=== PATIENT | male | born 1945 | race Caucasian/White ===

== ENCOUNTER 2017-09-12 09:00 | Day surgery (SDC) | payer OTHER ==
--- NOTE | 2017-09-12 10:06 | HP ---
Admitting History and Physical - Admission Chief Complaint: Right lower extremity claudication less than one block. Pt has been smoking 2ppd for over 50 years. Limitations to Obtaining History: No Limitations - Past Medical History Cardiovascular: Yes: HTN, Hyperlipdemia Endocrine: Yes: Diabetes Mellitus - Smoking History Smoking history: Current every day smoker Have you smoked in the past 12 months: Yes Aproximately how many cigarettes per day: 10 Home Medications - Allergies Allergies/Adverse Reactions: Allergies Allergy/AdvReac Type Severity Reaction Status Date / Time No Known Allergies Allergy Verified 08/05/17 10:32 - Home Medications Home Medications: Ambulatory Orders Aspirin [ASA -] 1 tab PO DAILY 08/05/17 Hydrochlorothiazide 1 tab PO DAILY 08/05/17 Insulin NPH Human Isophane [Humulin N] 30 unit SQ BID 08/05/17 Nifedipine [Nifedipine ER] 1 tab PO DAILY 08/05/17 Olmesartan/Hydrochlorothiazide [Olmesartan-Hctz 40-25 mg Tab] 1 tab PO DAILY 10/16 Rosuvastatin [Crestor -] 1 tab PO DAILY 08/05/17 Metoprolol Succinate 1 tab PO DAILY 08/19/17 Review of Systems - Review of Systems Constitutional: reports: No Symptoms Eyes: reports: No Symptoms HENT: reports: No Symptoms Neck: reports: No Symptoms Cardiovascular: reports: No Symptoms Respiratory: reports: No Symptoms Gastrointestinal: reports: No Symptoms Musculoskeletal: reports: No Symptoms Integumentary: reports: No Symptoms Neurological: reports: No Symptoms Physical Examination Constitutional: Yes: Well Nourished, No Distress, Calm Eyes: Yes: WNL, Conjunctiva Clear, EOM Intact HENT: Yes: WNL, Atraumatic, Normocephalic Neck: Yes: WNL, Supple, Trachea Midline Cardiovascular: Yes: WNL, Regular Rate and Rhythm Respiratory: Yes: WNL, Regular, CTA Bilaterally Gastrointestinal: Yes: WNL, Normal Bowel Sounds Musculoskeletal: Yes: WNL Extremities: Yes: WNL Edema: No Integumentary: Yes: WNL Neurological: Yes: WNL, Alert, Oriented ...Motor Strength: WNL Psychiatric: Yes: WNL Problem List - Problems (1) Arterial insufficiency of lower extremity Code(s): I73.9 - PERIPHERAL VASCULAR DISEASE, UNSPECIFIED Assessment/Plan RLE claudication 1. For angiogram today.
[2017-09-12] MEDS ORDERED: MIDAZOLAM HCL 2 MG/2 ML SINGLE DOSE VIAL ONE ×2 (11:02→11:05)
[2017-09-12] MEDS ORDERED: ceFAZolin SODIUM 1 GM VIAL IVPB ONE ×2 (11:05→11:06)
[2017-09-12] MEDS ORDERED: LIDOCAINE HCL 1%, 10 MG/ML (50 mL VIAL) IJ ONE (11:11)
[2017-09-12] MEDS ORDERED: PROPOFOL 20 ML ONE (11:18)
[2017-09-12] MEDS ORDERED: CLOPIDOGREL BISULFATE 75 MG TABLET (FP) PO ONE ×2 (11:49→12:27)
--- NOTE | 2017-09-12 11:52 | OP ---
Operative Note - Note: Operative Date: 09/12/17 Pre-Operative Diagnosis: RLE claudication Operation: aortogram, RLE angiogram, Popliteal artery atherectomy with DCB angioplasty Post-Operative Diagnosis: Same as Pre-op Surgeon: Herson Burks Anesthesia: Fractional Estimated Blood Loss (mls): 50 Operative Report Dictated: Yes
[2017-09-12] MEDS ORDERED: HEPARIN NA (PORCINE) 5,000 UNITS/ML 1ML VIAL ONE (11:53)
[2017-09-12] MEDS ORDERED: LIDOCAINE HCL 1%, 10 MG/ML (20ML VIAL) ONE (11:53)
[2017-09-12] MEDS ORDERED: hydrALAZINE HCL 20 MG/ML VIAL ONE (12:21)
[2017-09-12] MEDS ORDERED: hydrALAZINE HCL 20 MG/ML VIAL IVPUSH ONE (12:27)
--- NOTE | 2017-09-12 13:02 | OP ---
DATE OF OPERATION: 09/12/2017 PREOPERATIVE DIAGNOSIS: Right lower extremity claudication. POSTOPERATIVE DIAGNOSIS: Right lower extremity claudication. PROCEDURE: Aortogram, right lower extremity angiogram, right popliteal artery atherectomy with drug-coated balloon (DCB) angioplasty. SURGEON: Herson Grider DO ANESTHESIA: Fractional. BLOOD LOSS: 50 mL. The patient is a 72-year-old male who is a 50-year smoker, 2 packs a day, comes in with [id number]-blocks claudication in his right lower extremity. Preoperative ultrasound showed that he has about an 80% to 90% focal stenosis in his popliteal artery. It was decided the patient would need an angiogram. Patient came in through Ambulatory Surgery. Patient was consented for the procedure, understanding all risks, benefits, and alternatives, then taken to the operating room. Once in the operating room, he was laid on the operating table in supine manner, and the area of the right and left groin were prepped and draped in a sterile surgical manner. We then went ahead and punctured the left common femoral artery using 10 mL of lidocaine 1%. We then took our micropuncture needle, punctured the left common femoral artery. Micropuncture wire was inserted. Micropuncture sheath was inserted. A 0.035 floppy guidewire was inserted into the aorta, and a traditional 5-[place] sheath was inserted. We then placed an Omni Flush catheter into the aorta, and we then shot an aortogram by hand injection. The aortogram showed that the aorta and the iliac arteries were without any disease. We then placed a 0.035 floppy guidewire up and over to the right common femoral artery and our Omni Flush catheter followed. We then shot an angiogram of the right lower extremity, showing that the common femoral artery, the profunda, and the SFA were patent. Above-knee popliteal artery had a 95% stenosis that was focal. The rest of the popliteal artery was patent, and the patient has 2-vessel runoff into the foot. At this point, we placed a 0.035 stiff guidewire into the SFA and removed our Omni Flush catheter, placed a 6 x 45 crossover sheath. Next, 5000 units of IV heparin were administered to the patient. We brought our 0.035 stiff guidewire down to the popliteal artery, and using a Quick-Cross catheter, we were able to selectively cross our lesion. We then exchanged for a ViperWire. We then went ahead and used CSI orbital atherectomy and performed orbital atherectomy on low and medium of the popliteal artery lesion. Completion angiogram now showed that the artery was more patent, and you could see that the calcium had been shaven away. We then went ahead and used a 5 x 4 drug-coated Lutonix balloon and performed angioplasty of the right popliteal artery. Completion angiogram now showed that the artery was patent. There was no recoil. There was good brisk flow down into the foot. At this point, we brought our sheath up and over. StarClose device was successfully deployed in the left common femoral artery. Pressure was held for 5 minutes. After that, there was no more bleeding. Area was wet and dried, and Dermabond was placed. The patient tolerated the procedure with no complication. Patient transferred to PACU in stable condition. HEROSN GRIDER DO NP/[id number]
[2017-09-12 14:00] VITALS: BMI 23.0
[2017-09-12 15:50] VITALS: TEMP 98
[2017-09-12 17:30] VITALS: BP 142/56; PULSE 55
== END 2017-09-12 17:30 | disposition home or self-care (01) ==
LOC: JASU-SURG 09:00
PROVIDERS: ATTEND Surgery Vascular Surgery
PROC: 047M3Z1 Dilation of Right Popliteal Artery using Drug-Coated Balloon, Percutaneous Approach (ICD-10-PCS; principal; 2017-09-12 09:00)
DX: I70.211 Atherosclerosis of native arteries of extremities with intermittent claudication, right leg (principal); Z72.0 Tobacco use
CPT/HCPCS: 37225; C2623; 76000-TC-FY; 82962; 94760; J1644

== ENCOUNTER 2025-01-28 06:08 | Inpatient (IN) | payer OTHER ==
[2025-01-26 17:10] VITALS: BMI 24.7
[2025-01-28] MEDS ORDERED: HEPARIN NA (PORCINE) 5,000 UNITS/ML 1ML VIAL ONE (07:05)
[2025-01-28] MEDS ORDERED: MIDAZOLAM HCL 2 MG/2 ML SINGLE DOSE VIAL ONE (07:25)
[2025-01-28] MEDS ORDERED: LIDOCAINE HCL 1%, 10 MG/ML (20ML VIAL) ONE (07:31)
[2025-01-28] MEDS ORDERED: PROPOFOL 20 ML ONE (07:33)
[2025-01-28] MEDS ORDERED: ROCURONIUM BROMIDE 50 MG/5 ML SYRINGE ONE ×2 (08:10→09:12)
[2025-01-28] MEDS ORDERED: ONDANSETRON 4 MG/2 ML VIAL ONE ×2 (08:29→10:25)
[2025-01-28] MEDS ORDERED: DEXAMETHASONE SOD PHOSPHATE 4 MG/1 ML VIAL ONE (08:29)
[2025-01-28] MEDS ORDERED: ACETAMINOPHEN INJECTION 100 ML ONE (09:41)
[2025-01-28] MEDS ORDERED: PROTAMINE SULFATE 50 MG/5 ML VIAL ONE (10:04)
[2025-01-28] MEDS ORDERED: GLYCOPYRROLATE 0.2 MG/1 ML VIAL ONE (10:23)
[2025-01-28] MEDS ORDERED: NEOSTIGMINE METHYLSULFATE 0.5 MG/1 ML - 10 ML MDV ONE ×2 (10:23→10:43)
[2025-01-28] MEDS ORDERED: NALOXONE HCL 0.4 MG/ML VIAL ONE (11:00)
[2025-01-28] MEDS ORDERED: ONDANSETRON 4 MG/2 ML VIAL IVPUSH PRN (11:09)
[2025-01-28] MEDS ORDERED: INSULIN GLARGINE (LANTUS) 100 UNITS/ML UNITS SQ PRN (11:15)
[2025-01-28] MEDS ORDERED: INSULIN (NOVOLOG) ASPART 100 UNITS/ML 10ML VIAL SQ SCH (11:15)
[2025-01-28] MEDS ORDERED: ALBUTEROL SO4 0.083% IH SOL 2.5 MG/3 ML VIAL.NEB. NEB ONE (11:28)
[2025-01-28] MEDS: LACTATED RINGERS SOLUTION 1,000 ML IV SCH (11:36)
[2025-01-28] MEDS: ALBUTEROL SO4 0.083% IH SOL 2.5 MG/3 ML VIAL.NEB. NEB ONE (11:40)
[2025-01-28] MEDS: CEFAZOLIN 2 GM in DEXTROSE 5%-WATER - 100 ML IVPB ONE (12:05)
[2025-01-28] MEDS ORDERED: niCARdipine HCL 25 MG/10 ML AMPUL IVPB ONE (12:15)
[2025-01-28] MEDS: niCARdipine HCL 25 MG/10 ML - 10 ML VIAL IV SCH (13:28)
[2025-01-28] MEDS: NITROGLYCERIN SUBLINGUAL 1/150 0.4 MG TAB SL SCH (13:29)
[2025-01-28] MEDS ORDERED: INSULIN ASPART SLIDING SCALE (NOVOLOG) 1 VIAL SQ SCH (16:30)
[2025-01-28] MEDS: INSULIN (NOVOLOG) ASPART 100 UNITS/ML 10ML VIAL SQ SCH (17:02)
[2025-01-28] MEDS: INSULIN ASPART SLIDING SCALE (NOVOLOG) 1 VIAL SQ SCH (17:03)
[2025-01-28] MEDS: ONDANSETRON 4 MG/2 ML VIAL IVPUSH PRN (17:04)
[2025-01-28] MEDS: CEFAZOLIN SODIUM 2 GM in DEXTROSE 5%-WATER 100 ML IVPB SCH (18:33)
[2025-01-28] MEDS: CEFAZOLIN 2 GM in DEXTROSE 5%-WATER - 100 ML IVPB SCH (18:33)
[2025-01-28] MEDS: INSULIN GLARGINE (LANTUS) 100 UNITS/ML UNITS SQ SCH (21:20)
[2025-01-28] MEDS: VALSARTAN 160 MG TABLET PO SCH (21:20)
[2025-01-28] MEDS: HYDROCHLOROTHIAZIDE 25 MG TABLET (FP) PO SCH (21:20)
[2025-01-28] MEDS: METOPROLOL TARTRATE 25 MG TABLET (FP) PO SCH (21:21)
[2025-01-28 21:39] LABS: ABSOLUTE IMMATURE GRANULOCYTES 0.04 x10^3/uL (0.0-0.031); BASOPHILS # 0.02 x10^3/uL (0.01-0.08); EOSINOPHIL % 0.0 % (0.8-7.0); EOSINOPHILS # 0.00 x10^3/uL (0.04-0.54); MCHC 31.8 g/dl (32.3-36.5); MEAN CELL VOLUME 94.5 fl (79.0-92.2); MEAN PLT VOLUME 10.9 fl (9.4-12.4); MONOCYTE # 0.62 x10^3/uL (0.30-0.82); MONOCYTE % 6.3 % (5.3-12.2); RDW 12.9 % (12.2-16.6)
[2025-01-28] MEDS: RANOLAZINE E.R. 500 MG TABLET (FP) PO SCH (21:44)
[2025-01-28 21:57] LABS: GLUCOSE,RANDOM 210.0 mg/dL (74-106)
[2025-01-28 21:58] LABS: TOT PROT 5.8 g/dl (6.4-8.2)
[2025-01-28 21:59] LABS: CO2 20.0 mmol/L (21-32)
[2025-01-28 22:00] LABS: ALK PHOS 102.0 U/L (40-150)
[2025-01-28 22:03] LABS: CREATININE 1.28 mg/dL (0.55-1.3); SGOT/AST 43.0 U/L (5-34); SGPT/ALT 33.0 U/L (0-55)
[2025-01-29 06:45] LABS: ABSOLUTE IMMATURE GRANULOCYTES 0.03 x10^3/uL (0.0-0.031); BASOPHILS # 0.08 x10^3/uL (0.01-0.08); EOSINOPHIL % 0.6 % (0.8-7.0); EOSINOPHILS # 0.05 x10^3/uL (0.04-0.54); MCHC 32.2 g/dl (32.3-36.5); MEAN CELL VOLUME 94.2 fl (79.0-92.2); MEAN PLT VOLUME 11.7 fl (9.4-12.4); MONOCYTE # 0.87 x10^3/uL (0.30-0.82); MONOCYTE % 10.8 % (5.3-12.2); RDW 13.1 % (12.2-16.6)
[2025-01-29 07:10] LABS: GLUCOSE,RANDOM 165.0 mg/dL (74-106); TOT PROT 5.3 g/dl (6.4-8.2)
[2025-01-29 07:11] LABS: CO2 22.0 mmol/L (21-32)
[2025-01-29 07:13] LABS: ALK PHOS 89.0 U/L (40-150)
[2025-01-29 07:15] LABS: CREATININE 1.35 mg/dL (0.55-1.3); SGOT/AST 36.0 U/L (5-34); SGPT/ALT 24.0 U/L (0-55)
[2025-01-29] MEDS: ATORVASTATIN CA 80 MG TABLET (FP) PO SCH (09:03)
[2025-01-29] MEDS: MULTIVITAMINS (DAILY MVI) TABLET (FP) PO SCH (09:03)
[2025-01-29] MEDS: CLOPIDOGREL BISULFATE 75 MG TABLET (FP) PO SCH (09:04)
[2025-01-29] MEDS: FERROUS SO4 325 MG TABLET (FP) PO SCH (09:05)
[2025-01-29] MEDS: PANTOPRAZOLE 40 MG TABLET PO SCH (09:05)
[2025-01-29] MEDS: ASPIRIN 81 MG CHEWABLE TABLETS PO SCH (09:05)
[2025-01-29] MEDS: NIFEdipine E.R 60 MG TABLET PO SCH (09:14)
[2025-01-29] MEDS: EMPAGLIFLOZIN (JARDIANCE) 10 MG TABLET PO SCH (09:14)
[2025-01-29 11:03] VITALS: TEMP 98.2
[2025-01-29] MEDS: NITROGLYCERIN SUBLINGUAL 1/150 0.4 MG TAB SL SCH (11:34)
[2025-01-29] MEDS: MAG HYDROX/AL HYDROX/SIMETH 30 ML UNIT-DOSE CUP PO SCH (11:35)
[2025-01-29 17:37] VITALS: BP 169/63; PULSE 58; RESP 18
== END 2025-01-29 15:22 | disposition home or self-care (01) | DRG 36 ==
LOC: J2C 06:08 → JICU 13:24
PROVIDERS: ADMIT Surgery; ATTEND Surgery
PROC: 037K0DZ Dilation of Right Internal Carotid Artery with Intraluminal Device, Open Approach (ICD-10-PCS; principal; 2025-01-28 08:00)
DX: I65.21 Occlusion and stenosis of right carotid artery (principal); I10 Essential (primary) hypertension; E78.5 Hyperlipidemia, unspecified; I25.10 Atherosclerotic heart disease of native coronary artery without angina pectoris; E11.51 Type 2 diabetes mellitus with diabetic peripheral angiopathy without gangrene; D50.9 Iron deficiency anemia, unspecified
CPT/HCPCS: 36415; 76000-TC-FY; 80053; 82962; 83735; 84100; 85025; 86922; 94640; 94760; C1725; C1894